=== PATIENT | male | born 1970 | race Caucasian/White ===

== ENCOUNTER 2023-11-10 18:03 | Emergency (ER) | payer SELFPAY ==
[~2023-11-10] VITALS: Ht 165.1 cm; Wt 76.0 kg
[2023-11-10 18:28] VITALS: BP 141/73; RESP 18; TEMP 98.9; O2SAT 99
[2023-11-10 18:30] VITALS: PULSE 99
[2023-11-10 20:37] LABS: BASOPHILS % 0.9 % (0.0-2.0); HEMATOCRIT. 42.7 % (42.0-52.0); HEMOGLOBIN. 14.8 g/dL (14.0-18.0); LYMPHOCYTES % 20.5 % (20.0-50.0); MEAN CORPUSCULAR HEMOGLOBIN 32.4 pg (28.0-32.0); MEAN CORPUSCULAR HGB CONC 34.7 g/dL (31.0-37.0); MEAN CORPUSCULAR VOLUME 93.5 fL (80.0-94.0); MEAN PLATELET VOLUME 8.9 fl (7.4-10.4); MONOCYTES % 10.4 % (2.0-8.0); NEUTROPHILS % 64.2 % (40.0-76.0); PLATELET 144 x1000/uL (130-400); RED BLOOD CELL COUNT 4.57 mill/uL (4.7-6.1); RED CELL DISTRIBUTION WIDTH 13.8 % (11.6-14.6); WHITE BLOOD COUNT 6.3 x1000/uL (4.5-11.0)
[2023-11-10 20:51] LABS: ALANINE AMINOTRANSFERASE 22 IU/L (10-49); ALBUMIN 2.2 g/dL (3.2-4.8); ASPARTATE AMINOTRANSFERASE 31 IU/L (<34); BILIRUBIN TOTAL 0.2 mg/dL (0.1-1.0); CALCIUM 7.8 mg/dL (8.7-10.4); CARBON DIOXIDE 26 mEq/L (21-32); CHLORIDE 113 mEq/L (98-107); CREATININE 0.8 mg/dL (0.6-1.3); GLUCOSE 94 mg/dL (70-105); POTASSIUM 4.2 mEq/L (3.5-5.1); PROTEIN TOTAL 4.7 g/dL (6.0-8.3); SODIUM 141 mEq/L (136-145); UREA NITROGEN BLOOD 25 mg/dL (9-23)
[2023-11-10] MEDS ORDERED: SULF1TAB48 PO (23:13)
[2023-11-10] MEDS ORDERED: CEPH500T MT (23:13)
[2023-11-10] MEDS ORDERED: CALC-1249 MT (23:13)
[2023-11-10] MEDS ORDERED: NAPR-681 PO (23:13)
== END 2023-11-10 21:43 | disposition home or self-care (01) ==
LOC: ER 18:03
DX: L03.032 Cellulitis of left toe (principal); E83.51 Hypocalcemia; L97.521 Non-pressure chronic ulcer of other part of left foot limited to breakdown of skin; L03.116 Cellulitis of left lower limb
CPT/HCPCS: 36415; 73630; 80053; 83605; 84145; 85025; 99284